=== PATIENT | female | born 1945 | race Caucasian/White ===

== ENCOUNTER → 2017-12-12 | Outpatient (CLI) | payer OTHER, MEDICARE | LOC: FIMAGING 12:48 | PROVIDERS: ATTEND Family Medicine | DX: D25.2 Subserosal leiomyoma of uterus (principal); K76.89 Other specified diseases of liver; N28.1 Cyst of kidney, acquired ==

== ENCOUNTER → 2017-12-22 | Outpatient (CLI) | payer OTHER, MEDICARE ==
[~2017-12-22] MED LIST: IOPAMIDOL (ISOVUE-300) 100 ML BTL ONE; diphenhydrAMINE 25 MG CAP PO ONE; diphenhydrAMINE 25 MG CAP PO PRN
== END ==
LOC: FIMAGING 09:44
PROVIDERS: ATTEND Family Medicine
DX: C48.1 Malignant neoplasm of specified parts of peritoneum (principal); J98.4 Other disorders of lung; K76.89 Other specified diseases of liver; R59.9 Enlarged lymph nodes, unspecified; N28.1 Cyst of kidney, acquired; K31.89 Other diseases of stomach and duodenum; K63.89 Other specified diseases of intestine; Z91.041 Radiographic dye allergy status
CPT/HCPCS: 74170; Q9967; 82565-PO